=== PATIENT | female | born 1945 | race Caucasian/White ===

== ENCOUNTER → 2017-02-09 | Outpatient (CLI) | payer BC ==
[~2017-02-09] MED LIST: ATOR10TA88 PO; CITA20TA9 PO; CLTP PO; DORZ1SOL6 OP; FSMD/70 PO; LATA0.009 OPB; LORA0.5T12 PO; MELO15TA4 PO; MULT-506 PO; NXM/40 PO; VITAMIN D PO; [UNRECOGNIZED DRUG - OTHER] PO
[2017-02-09 15:04] LABS: CALCIUM 8.8 mg/dl (8.5-10.1)
[2017-02-09 15:18] LABS: THYROID STIMULATING HORMONE 3.51 uIu/ml (0.300-4.500)
== END | disposition home or self-care (01) ==
LOC: C.LAB1850 14:04
PROVIDERS: ATTEND Internal Medicine Endocrinology, Diabetes & Metabolism
DX: E03.9 Hypothyroidism, unspecified (principal); E20.9 Hypoparathyroidism, unspecified

== ENCOUNTER → 2017-04-11 | Outpatient (CLI) | payer BC ==
[~2017-04-11] MED LIST changes: +ATOR10TA82 PO; -ATOR10TA88 PO
[2017-04-11 17:40] LABS: CALCIUM 8.2 mg/dl (8.5-10.1)
[2017-04-11 17:55] LABS: THYROID STIMULATING HORMONE 0.089 uIu/ml (0.300-4.500)
== END | disposition home or self-care (01) ==
LOC: C.LABPBG 13:09
PROVIDERS: ATTEND Internal Medicine Endocrinology, Diabetes & Metabolism
DX: E03.9 Hypothyroidism, unspecified (principal); E20.9 Hypoparathyroidism, unspecified